=== PATIENT | male | born 1960 | race Caucasian/White ===

== ENCOUNTER 2017-05-30 07:16 | Inpatient (IN) | payer BC, OTHER ==
[~2017-05-30] VITALS: Ht 180.3 cm; Wt 71.9 kg
[2017-05-30] MEDS ORDERED: potassium Cl 20 mEq SR tablet PO STA (07:26)
[2017-05-30] MEDS ORDERED: diltiazem 30mg tablet PO ONE (07:30)
[2017-05-30] MEDS ORDERED: diltiazem 5mg/ml 5ml inj. IV ONE ×2 (07:30→08:20)
[2017-05-30] MEDS ORDERED: LORazepam 2 mg/ml vial IV ONE (07:30)
[2017-05-30] MEDS ORDERED: aspirin 81mg tab.chew PO ONE (07:30)
[2017-05-30] MEDS ORDERED: normal saline 1000ML IV soln IVB ONE (07:30)
[2017-05-30] MEDS ORDERED: magnesium 2GM in 50ml NS 50 ML IV ONE (07:30)
[2017-05-30 07:58] LABS: BASOPHILS % (AUTO) 0.3 % (0-1); EOSINOPHILS # (AUTO) 0.4 X10'3 (0-0.9); EOSINOPHILS % (AUTO) 4.3 % (0-6); HEMATOCRIT 42.8 % (42.0-52.0); HEMOGLOBIN 14.7 g/dl (14.0-17.9); LYMPHOCYTES # (AUTO) 2.4 X10'3 (1.1-4.8); LYMPHOCYTES % (AUTO) 27.9 % (21-51); MEAN CORPUSCULAR HEMOGLOBIN 31.2 PG (27.0-31.0); MEAN CORPUSCULAR HGB CONC 34.4 % (33.0-36.5); MEAN CORPUSCULAR VOLUME 90.5 FL (78-98); MEAN PLATELET VOLUME 9.3 FL (7.4-10.4); MONOCYTES # (AUTO) 1.2 X10'3 (0-0.9); MONOCYTES % (AUTO) 14.2 % (2-12); NEUTROPHILS # (AUTO) 4.6 X10'3 (1.8-7.7); NEUTROPHILS % (AUTO) 53.3 % (42-75); PLATELET COUNT 258 X10'3 (140-440); RED BLOOD COUNT 4.73 X10'6 (4.70-6.10); RED CELL DISTRIBUTION WIDTH 11.9 % (11.5-14.5); WHITE BLOOD COUNT 8.6 X10'3 (4.5-11.0)
[2017-05-30 08:11] LABS: PROTHROMBIN TIME 10.7 SECONDS (9.0-12.0)
[2017-05-30 08:17] LABS: ALANINE AMINOTRANSFERASE 100 U/L (12-78); ALBUMIN 3.3 G/DL (3.4-5.0); ALBUMIN/GLOBULIN RATIO 0.9 (1.1-1.5); ALKALINE PHOSPHATASE 81 IU/L (46-116); ANION GAP 14 (8-16); ASPARTATE AMINO TRANSFERASE 42 U/L (10-37); BILIRUBIN,TOTAL 1.8 MG/DL (0.1-1.0); BLOOD UREA NITROGEN 22 MG/DL (7-18); BUN/CREATININE RATIO 24.4 (5.4-32.0); CALCIUM 9.7 MG/DL (8.5-10.1); CHLORIDE 105 MMOL/L (99-107); GLUCOSE 114 MG/DL (70-104); MAGNESIUM 1.5 MG/DL (1.5-2.4); SODIUM 144 MMOL/L (135-145); TOTAL CARBON DIOXIDE 25.4 MMOL/L (24-32); TOTAL PROTEIN 6.9 G/DL (6.4-8.2); eGFR 87 ML/MIN
[2017-05-30 08:18] LABS: POTASSIUM 4.1 MMOL/L (3.5-5.1)
[2017-05-30] MEDS ORDERED: IODINE TP ONE (08:25)
[2017-05-30] MEDS ORDERED: POTASSIUM IODIDE TP ONE (08:25)
[2017-05-30] MEDS ORDERED: propranolol 10mg tablet PO ONE (08:25)
[2017-05-30] MEDS ORDERED: diltiazem-D5W 125mg/125ml 125 ML IV SCH (08:40)
[2017-05-30] MEDS ORDERED: enoxaparin 100mg/ml syringe SUBCUT ONE (08:40)
[2017-05-30] MEDS ORDERED: morphine 5 MG/ML injection IV PRN ×2 (08:45)
[2017-05-30] MEDS ORDERED: HYDROcodone/acetaminophen 5mg/325mg tablet PO PRN (08:45)
[2017-05-30] MEDS ORDERED: magnesium hydroxide 30ml (MOM) UD suspension PO PRN (08:45)
[2017-05-30] MEDS ORDERED: diphenhydrAMINE 50 mg/ml inj IV PRN (08:45)
[2017-05-30] MEDS ORDERED: metoclopramide 5 mg/ml inj IV PRN (08:45)
[2017-05-30] MEDS ORDERED: diphenhydrAMINE 25mg capsule PO PRN (08:45)
[2017-05-30] MEDS ORDERED: bisacodyl 10mg suppository rectal RC PRN (08:45)
[2017-05-30] MEDS ORDERED: HYDROcodone/acetaminophen 10/325mg tab PO PRN (08:45)
[2017-05-30] MEDS ORDERED: acetaminophen 650mg rectal suppository RC PRN (08:45)
[2017-05-30] MEDS ORDERED: mag hydrox/Alum hydrox/simeth 30ml oral suspension PO PRN (08:45)
[2017-05-30] MEDS ORDERED: acetaminophen 325mg tablet PO PRN ×2 (08:45)
[2017-05-30] MEDS ORDERED: ondansetron/PF 4mg/2ml inj IV PRN (08:45)
[2017-05-30] MEDS ORDERED: HYDROmorphone inj. 0.5 MG/0.5 ML DISP.SYRIN IV PRN ×2 (08:45)
[2017-05-30] MEDS ORDERED: NO HOME MEDS (09:11)
[2017-05-30] MEDS ORDERED: POTASSIUM IODIDE PO SCH (09:15)
[2017-05-30] MEDS ORDERED: POTASSIUM IODIDE PO ONE (09:15)
[2017-05-30 09:26] LABS: LIPASE 112 U/L (73-393)
[2017-05-30 10:08] LABS: CLARITY,URINE Clear (Clear); COLOR,URINE Yellow (Yellow); GLUCOSE, URINE Negative (Neg); KETONES,URINE 15 mg/dl (Neg); LEUKOCYTE ESTERASE ,URINE Negative (Neg); NITRITES, URINE Negative (Neg); OCCULT BLOOD,URINE Negative (Neg); PROTEIN,URINE Negative (Neg); UROBILINOGEN,URINE 0.2 E.U/dL (0.2-1.0)
[2017-05-30 10:10] LABS: UA COLLECTION TYPE URINAL
[2017-05-30 10:13] LABS: URINE AMPHETAMINE SCREEN NEGATIVE (Neg); URINE BARBITUATE SCREEN NEGATIVE (Neg); URINE BENZODIAZEPINES SCREEN NEGATIVE (Neg); URINE CANNABINOID SCREEN NEGATIVE (Neg); URINE COCAINE SCREEN NEGATIVE (Neg); URINE METHADONE SCREEN NEGATIVE (Neg); URINE OPIATE SCREEN NEGATIVE (Neg); URINE PHENCYCLIDINE SCREEN NEGATIVE (Neg)
[2017-05-30] MEDS: normal saline 1000ml 1,000 ML IV SCH ×2 (10:40→16:13)
[2017-05-30 11:34] LABS: PHOSPHORUS 3.8 MG/DL (2.3-4.5)
[2017-05-30 11:45] VITALS: BP 115/80
[2017-05-30] MEDS ORDERED: normal saline 1000ml 1,000 ML IVB ONE (13:30)
[2017-05-30 15:00] VITALS: BP 114/69
[2017-05-30 18:00] VITALS: BP 128/71
[2017-05-30] MEDS ORDERED: enoxaparin 30mg/0.3ml syringe SQ SCH (20:00)
[2017-05-30] MEDS: docusate sod 100mg capsule PO SCH (20:33)
[2017-05-30] MEDS: propranolol 10mg tablet PO SCH (20:35)
[2017-05-30] MEDS: enoxaparin 30mg/0.3ml syringe SUBCUT SCH (20:40)
[2017-05-30] MEDS: enoxaparin 40mg/0.4ml syringe SUBCUT SCH (20:40)
[2017-05-30] MEDS ORDERED: temazepam 15mg capsule PO PRN (21:00)
[2017-05-30 22:00] VITALS: BP 123/73
[2017-05-31] VITALS (15 sets, daily range): BP systolic 119–161; BP diastolic 63–90
[2017-05-31] MEDS: normal saline 1000ml 1,000 ML IV SCH ×3 (02:14→21:45)
[2017-05-31 06:54] LABS: BASOPHILS % (AUTO) 0.3 % (0-1); EOSINOPHILS # (AUTO) 0.2 X10'3 (0-0.9); EOSINOPHILS % (AUTO) 3.1 % (0-6); HEMATOCRIT 38.9 % (42.0-52.0); HEMOGLOBIN 13.5 g/dl (14.0-17.9); LYMPHOCYTES # (AUTO) 1.7 X10'3 (1.1-4.8); LYMPHOCYTES % (AUTO) 22.3 % (21-51); MEAN CORPUSCULAR HEMOGLOBIN 31.1 PG (27.0-31.0); MEAN CORPUSCULAR HGB CONC 34.7 % (33.0-36.5); MEAN CORPUSCULAR VOLUME 89.6 FL (78-98); MEAN PLATELET VOLUME 9.7 FL (7.4-10.4); MONOCYTES # (AUTO) 0.9 X10'3 (0-0.9); MONOCYTES % (AUTO) 11.8 % (2-12); NEUTROPHILS # (AUTO) 4.7 X10'3 (1.8-7.7); NEUTROPHILS % (AUTO) 62.5 % (42-75); PLATELET COUNT 223 X10'3 (140-440); RED BLOOD COUNT 4.34 X10'6 (4.70-6.10); RED CELL DISTRIBUTION WIDTH 11.8 % (11.5-14.5); WHITE BLOOD COUNT 7.5 X10'3 (4.5-11.0)
[2017-05-31 07:27] LABS: ALANINE AMINOTRANSFERASE 89 U/L (12-78); ALBUMIN 2.8 G/DL (3.4-5.0); ALBUMIN/GLOBULIN RATIO 0.9 (1.1-1.5); ALKALINE PHOSPHATASE 73 IU/L (46-116); ANION GAP 10 (8-16); ASPARTATE AMINO TRANSFERASE 30 U/L (10-37); BILIRUBIN,TOTAL 1.2 MG/DL (0.1-1.0); BLOOD UREA NITROGEN 20 MG/DL (7-18); CALCIUM 9.1 MG/DL (8.5-10.1); CHLORIDE 107 MMOL/L (99-107); CHOL/HDL RATIO 4.2 (0.00-4.99); CHOLESTEROL 108 MG/DL (0-200); CREATININE 0.87 MG/DL (0.60-1.10); GLUCOSE 91 MG/DL (70-104); HDL CHOLESTEROL 26 MG/DL (35-60); LDL CHOLESTEROL 75 MG/DL (50-100); POTASSIUM 4.5 MMOL/L (3.5-5.1); SODIUM 142 MMOL/L (135-145); TOTAL CARBON DIOXIDE 24.8 MMOL/L (24-32); TRIGLYCERIDES 68 MG/DL (20-135); eGFR 90 ML/MIN
[2017-05-31] MEDS: propranolol 10mg tablet PO SCH ×3 (08:14→20:57)
[2017-05-31] MEDS: docusate sod 100mg capsule PO SCH ×2 (08:14→19:02)
[2017-05-31] MEDS: enoxaparin 40mg/0.4ml syringe SUBCUT SCH ×2 (08:15→19:03)
[2017-05-31] MEDS: pantoprazole 40mg Tablet.DR PO SCH (08:15)
[2017-05-31] MEDS: enoxaparin 30mg/0.3ml syringe SUBCUT SCH ×2 (08:16→19:03)
[2017-05-31] MEDS ORDERED: diltiazem 5mg/ml 5ml inj. IV ONE ×2 (10:25→11:25)
[2017-05-31 13:20] LABS: THYROID PEROXIDASE AB 6 IU/mL (0-34)
[2017-05-31] MEDS ORDERED: diltiazem-D5W 125mg/125ml 125 ML IV SCH (13:45)
[2017-05-31] MEDS ORDERED: temazepam 15mg capsule PO PRN (18:25)
[2017-06-01] VITALS (21 sets, daily range): BP systolic 94–152; BP diastolic 54–92
[2017-06-01 06:30] LABS: BASOPHILS % (AUTO) 0.3 % (0-1); EOSINOPHILS # (AUTO) 0.3 X10'3 (0-0.9); EOSINOPHILS % (AUTO) 5.2 % (0-6); HEMATOCRIT 37.9 % (42.0-52.0); HEMOGLOBIN 13.3 g/dl (14.0-17.9); LYMPHOCYTES # (AUTO) 1.8 X10'3 (1.1-4.8); LYMPHOCYTES % (AUTO) 27.9 % (21-51); MEAN CORPUSCULAR HEMOGLOBIN 31.1 PG (27.0-31.0); MEAN CORPUSCULAR HGB CONC 35.1 % (33.0-36.5); MEAN CORPUSCULAR VOLUME 88.8 FL (78-98); MEAN PLATELET VOLUME 9.4 FL (7.4-10.4); MONOCYTES % (AUTO) 15.7 % (2-12); NEUTROPHILS # (AUTO) 3.2 X10'3 (1.8-7.7); NEUTROPHILS % (AUTO) 50.9 % (42-75); PLATELET COUNT 219 X10'3 (140-440); RED BLOOD COUNT 4.26 X10'6 (4.70-6.10); WHITE BLOOD COUNT 6.3 X10'3 (4.5-11.0)
[2017-06-01 06:53] LABS: ALANINE AMINOTRANSFERASE 66 U/L (12-78); ALBUMIN 2.6 G/DL (3.4-5.0); ALBUMIN/GLOBULIN RATIO 0.8 (1.1-1.5); ALKALINE PHOSPHATASE 69 IU/L (46-116); ANION GAP 10 (8-16); ASPARTATE AMINO TRANSFERASE 20 U/L (10-37); BILIRUBIN,TOTAL 1.3 MG/DL (0.1-1.0); BLOOD UREA NITROGEN 16 MG/DL (7-18); BUN/CREATININE RATIO 22.2 (5.4-32.0); CALCIUM 9.1 MG/DL (8.5-10.1); CHLORIDE 106 MMOL/L (99-107); CREATININE 0.72 MG/DL (0.60-1.10); GLUCOSE 103 MG/DL (70-104); POTASSIUM 3.9 MMOL/L (3.5-5.1); SODIUM 142 MMOL/L (135-145); TOTAL PROTEIN 5.8 G/DL (6.4-8.2); eGFR > 90 ML/MIN
[2017-06-01] MEDS: docusate sod 100mg capsule PO SCH ×2 (08:20→20:16)
[2017-06-01] MEDS: enoxaparin 40mg/0.4ml syringe SUBCUT SCH ×2 (08:20→20:17)
[2017-06-01] MEDS: pantoprazole 40mg Tablet.DR PO SCH (08:20)
[2017-06-01] MEDS: propranolol 10mg tablet PO SCH ×3 (08:20→20:16)
[2017-06-01] MEDS: enoxaparin 30mg/0.3ml syringe SUBCUT SCH ×2 (08:20→20:18)
[2017-06-01] MEDS: normal saline 1000ml 1,000 ML IV SCH ×2 (10:03→21:15)
[2017-06-01] MEDS ORDERED: LORazepam 1 MG tablet PO PRN (10:30)
[2017-06-01] MEDS: diltiazem-D5W 125mg/125ml 125 ML IV SCH (11:31)
[2017-06-02] VITALS (14 sets, daily range): BP systolic 106–142; BP diastolic 55–73
[2017-06-02] MEDS: diltiazem-D5W 125mg/125ml 125 ML IV SCH ×2 (00:44→12:53)
[2017-06-02] MEDS: normal saline 1000ml 1,000 ML IV SCH (05:56)
[2017-06-02 06:07] LABS: BASOPHILS % (AUTO) 0.3 % (0-1); EOSINOPHILS # (AUTO) 0.4 X10'3 (0-0.9); EOSINOPHILS % (AUTO) 7.3 % (0-6); HEMATOCRIT 36.6 % (42.0-52.0); HEMOGLOBIN 12.9 g/dl (14.0-17.9); LYMPHOCYTES # (AUTO) 1.7 X10'3 (1.1-4.8); LYMPHOCYTES % (AUTO) 31.8 % (21-51); MEAN CORPUSCULAR HEMOGLOBIN 31.2 PG (27.0-31.0); MEAN CORPUSCULAR HGB CONC 35.2 % (33.0-36.5); MEAN CORPUSCULAR VOLUME 88.6 FL (78-98); MEAN PLATELET VOLUME 9.2 FL (7.4-10.4); MONOCYTES # (AUTO) 0.8 X10'3 (0-0.9); NEUTROPHILS # (AUTO) 2.6 X10'3 (1.8-7.7); NEUTROPHILS % (AUTO) 46.6 % (42-75); PLATELET COUNT 200 X10'3 (140-440); RED BLOOD COUNT 4.13 X10'6 (4.70-6.10); RED CELL DISTRIBUTION WIDTH 11.8 % (11.5-14.5); WHITE BLOOD COUNT 5.5 X10'3 (4.5-11.0)
[2017-06-02 06:36] LABS: ALANINE AMINOTRANSFERASE 67 U/L (12-78); ALBUMIN 2.6 G/DL (3.4-5.0); ALBUMIN/GLOBULIN RATIO 0.9 (1.1-1.5); ALKALINE PHOSPHATASE 63 IU/L (46-116); ANION GAP 9 (8-16); ASPARTATE AMINO TRANSFERASE 19 U/L (10-37); BILIRUBIN,TOTAL 0.8 MG/DL (0.1-1.0); BLOOD UREA NITROGEN 21 MG/DL (7-18); BUN/CREATININE RATIO 26.6 (5.4-32.0); CHLORIDE 108 MMOL/L (99-107); CREATININE 0.79 MG/DL (0.60-1.10); GLUCOSE 114 MG/DL (70-104); POTASSIUM 4.3 MMOL/L (3.5-5.1); SODIUM 144 MMOL/L (135-145); TOTAL PROTEIN 5.6 G/DL (6.4-8.2); eGFR > 90 ML/MIN
[2017-06-02] MEDS: docusate sod 100mg capsule PO SCH (08:22)
[2017-06-02] MEDS: pantoprazole 40mg Tablet.DR PO SCH (08:23)
[2017-06-02] MEDS: propranolol 10mg tablet PO SCH ×2 (08:23→13:08)
[2017-06-02] MEDS: enoxaparin 40mg/0.4ml syringe SUBCUT SCH (08:23)
[2017-06-02] MEDS: enoxaparin 30mg/0.3ml syringe SUBCUT SCH (08:24)
[2017-06-02] MEDS ORDERED: PROP10TA10 PO (14:07)
[2017-06-02] MEDS ORDERED: ASPI81TA52 PO (14:07)
[2017-06-02] MEDS ORDERED: PROP50TA3 PO (16:38)
[2017-06-02] MEDS ORDERED: APIX5TAB3 PO (16:38)
[2017-06-03 09:41] LABS: ANTITHYROGLOBULIN AB <1.0 IU/mL (0.0-0.9)
== END 2017-06-02 17:20 | disposition home or self-care (01) | DRG 308 ==
LOC: ER 07:17 → ED HOLD 08:42 → PCU 3S 12:34
PROVIDERS: ADMIT Family Medicine; ATTEND Family Medicine
DX: I48.91 Unspecified atrial fibrillation (principal); E05.91 Thyrotoxicosis, unspecified with thyrotoxic crisis or storm; I50.33 Acute on chronic diastolic (congestive) heart failure; I24.9 Acute ischemic heart disease, unspecified; K73.9 Chronic hepatitis, unspecified; E86.0 Dehydration; Z80.9 Family history of malignant neoplasm, unspecified; Z91.018 Allergy to other foods
CPT/HCPCS: 36415; 71045; 76536; 80053; 80061; 80305; 81003; 83036; 83690; 83735; 83880; 84100; 84432; 84439; 84442; 84443; 84480; 84484; 85025; 85379; 85610; 86376; 86800; 87070; 93005; 93306; J1650; J2060; J3475; J3490; J7030